=== PATIENT | female | born 1985 | race African-American/Black ===

== ENCOUNTER 2021-05-11 13:00 | Emergency (ER) | payer BC, SELFPAY ==
[2021-05-11 13:13] VITALS: BP 135/106; PULSE 100; RESP 16; TEMP 36.9; O2SAT 100
--- NOTE | 2021-05-11 13:32 | ED.URI ---
HPI - URI/Sore Throat General Chief Complaint: Upper Respiratory Infection Stated Complaint: Congestion Time Seen by Provider: 05/11/21 13:33 Source: patient Mode of arrival: ambulatory Limitations: no limitations History of Present Illness HPI Narrative: Eda Bragg is a 36 year old with no PMH who comes to [facility] with complaints of okay diarrhea, decreased sense of smell, ingestion that started on Saturday and is exposed to someone with Covid. Related Data Allergies Allergy/AdvReac Type Severity Reaction Status Date / Time No Known Allergies Allergy Verified 05/11/21 13:46 Review of Systems Review of Systems: Narrative: CONSTITUTIONAL: Denies fever, chills, sweats. Loss of taste and smell EYES: Denies visual changes, redness, discharge. ENT: Denies rhinorrhea, mild congestion, sore throat, otalgia. CARDIOVASCULAR: Denies chest pain, palpitations, edema. RESPIRATORY: Denies dyspnea, wheezing, dry cough GASTROINTESTINAL: Denies abdominal pain, nausea, vomiting, diarrhea. GENITOURINARY: Denies dysuria, hematuria, abnormal discharge SKIN: Denies rash or itching. NEUROLOGIC: Denies numbness, or focal weakness. PSYCHIATRIC: Denies anxiety or depression. PMFSH Past Medical History Medical History No acute medical problems Family History Family History Other No acute medical problems Social History Social History (Updated 05/11/21 @ 13:41 by Josephine Simons CNP) Smoking status: Never smoker Alcohol intake: current Comments At time of signature, I agree with nursing past medical, surgical, social and family history. There is no relevant family history pertinent to the presenting complaint. Blood pressure elevated at this visit patient has Covid with follow-up with physician when she is able to leave quarantine Exam Narrative: Exam Narrative: GENERAL: This is a well-nourished, well-developed patient, in mild distress. HEAD: normocephalic, atraumatic. EYES:Sclera clear/white. Vision is grossly intact. EARS: External ears normal, auditory canals clear and without drainage, TMs normal without perforation. Hearing grossly intact. NOSE: External nose normal without nasal discharge, nares with redness, has rhinorrhea. THROAT: Mucous membranes moist, posterior pharynx erythema NECK: Neck supple, non-tender CARDIOVASCULAR: Regular rate and rhythm without murmurs, gallops, or rubs. RESPIRATORY: Clear to auscultation. Breath sounds equal bilaterally. No wheezes, rales, or rhonchi. GASTROINTESTINAL: Abdomen soft, SKIN: warm, intact with no suspicious lesions or rash, good texture and turgor. NEURO: awake, alert, and oriented to person, place and time. There were no obvious focal neurologic abnormalities. Steady gait EXTREMITIES: Normal range of motion. BACK: Nontender without deformity Course Course Emergency Course: Patient comes to [facility] with some loss of taste and smell and congestion she states she is exposed to someone with Covid Covid test is positive Discussed quarantine and treatment of symptoms Vital Signs Vital signs: Vital Signs Temperature 98.4 F 05/11/21 13:13 Pulse Rate 100 05/11/21 13:13 Respiratory Rate 16 05/11/21 13:13 Blood Pressure 135/106 H 05/11/21 13:13 Pulse Oximetry 100 05/11/21 13:13 Temperature 98.4 F 05/11/21 13:13 Pulse Rate 100 05/11/21 13:13 Respiratory Rate 16 05/11/21 13:13 Blood Pressure 135/106 H 05/11/21 13:13 Pulse Oximetry 100 05/11/21 13:13 MDM - URI/Sore Throat Differential Diagnosis Differential diagnosis: Likely upper respiratory infection, viral infection, influenza, pharyngitis and other Lab Data Labs: Lab Results 05/11/21 Range/Units 13:20 POC SARS CoV-2 Ag Positive (Negative) Critical Care Time Critical Care Time Critical Care Time: No Discharge Plan Discharge Clinical Impression:
== END 2021-05-11 13:52 | disposition home or self-care (01) ==
PROVIDERS: Emergency Provider Nurse Practitioner; PCP Family Medicine
DX: U07.1 COVID-19 (principal)
CPT/HCPCS: 87426; 99203; C9803; G0463

== ENCOUNTER 2022-02-23 15:15 | Emergency (ER) | payer OTHER, BC, SELFPAY ==
[2022-02-23 15:31] VITALS: BP 155/91; PULSE 76; RESP 16; TEMP 37.3; O2SAT 99
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
== END 2022-02-23 15:49 | disposition home or self-care (01) ==
PROVIDERS: Emergency Provider Nurse Practitioner Family
DX: S46.811A Strain of other muscles, fascia and tendons at shoulder and upper arm level, right arm, initial encounter (principal); V49.88XA Car occupant (driver) (passenger) injured in other specified transport accidents, initial encounter
CPT/HCPCS: 99213; G0463